=== PATIENT | female | born 1945 | race Caucasian/White ===

== ENCOUNTER 2019-03-15 10:08 | Outpatient (CLI) | payer MEDICARE | END 2019-03-15 23:59 | disposition home or self-care (01) | LOC: STAR 10:08 | PROVIDERS: ATTEND Orthopaedic Surgery | DX: Z01.818 Encounter for other preprocedural examination (principal); M17.12 Unilateral primary osteoarthritis, left knee; R94.31 Abnormal electrocardiogram [ECG] [EKG] | CPT/HCPCS: 36415; 80053; 81003; 83036; 85025; 85610; 85730; 87081; 93005 ==